=== PATIENT | female | born 1990 | race Caucasian/White ===

== ENCOUNTER 2024-07-08 00:04 | Emergency (ER) | payer OTHER ==
[~2024-07-08] VITALS: Ht 177.8 cm; Wt 81.6 kg
[2024-07-08 00:29] VITALS: BP 124/86; TEMP 98.5; O2SAT 99
[2024-07-08] MEDS ORDERED: TACR100O TP (00:40)
== END 2024-07-08 01:08 | disposition home or self-care (01) ==
LOC: ER 00:11
DX: L20.9 Atopic dermatitis, unspecified (principal)